=== PATIENT | female | born 1975 | race Asian ===

== ENCOUNTER 2024-11-25 15:36 | Emergency (ER) | payer MEDICAID ==
[~2024-11-25] VITALS: Ht 154.9 cm; Wt 65.9 kg
[2024-11-25 15:50] VITALS: BP 172/95; PULSE 78; RESP 18; TEMP 98.1; O2SAT 98
[2024-11-25 16:11] LABS: GLUCOMETER DEV NAME(LOC) ERT.6; GLUCOSE,POINT OF CARE 141 MG/DL (70-110)
== END 2024-11-25 22:05 | disposition left against medical advice (07) ==
LOC: EMS 15:36
DX: M25.512 Pain in left shoulder (principal); M25.562 Pain in left knee; M79.672 Pain in left foot; Z53.21 Procedure and treatment not carried out due to patient leaving prior to being seen by health care provider
CPT/HCPCS: 82962